=== PATIENT | male | born 1965 | race Caucasian/White ===

== ENCOUNTER 2020-09-05 18:28 | Emergency (ER) | payer MEDICARE, OTHER ==
[~2020-09-05 18:28] MED LIST: BACLOFEN10 MG PO; BENTYL10 MG PO; CATAPRES0.1 MG PO; CYCLOBENZAPRINE10 MG PO; HYDROCODON-ACE1 EAC2 PO; KLOR-CON M 1010 MEQ PO; LEVOTHYROXINE25 MCG PO; MEDROL 4MG DOSEP4 MG PO; METHYLPREDNISOLO4 M1 PO; MOTRIN600 MG PO; NORCO 5-325 TA1 EACH PO; OMEPRAZOLE40 MG PO; PREDNISONE 20MG20 MG PO; PROPRANOLOL HCL10 MG PO; QUETIAPINE FUM100 MG PO; TAMSULOSIN HCL0.4 MG PO; TIZANIDINE HCL4 M1 PO; WAL-FEX ALLERG180 MG PO; ZANAFLEX4 MG PO; ZOFRAN4 MG PO
== END 2020-09-05 22:22 | disposition home or self-care (01) ==
LOC: FER 18:28
DX: G89.29 Other chronic pain (principal); M54.5 Low back pain; Z88.2 Allergy status to sulfonamides; Z88.6 Allergy status to analgesic agent
CPT/HCPCS: 96372; J1100; J1170; J2550

== ENCOUNTER 2020-10-03 12:02 | Emergency (ER) | payer MEDICARE, OTHER | END 2020-10-03 14:20 | disposition home or self-care (01) | LOC: FER 12:02 | DX: G89.29 Other chronic pain (principal); M25.552 Pain in left hip; J44.9 Chronic obstructive pulmonary disease, unspecified; Z87.39 Personal history of other diseases of the musculoskeletal system and connective tissue; Z98.890 Other specified postprocedural states; Z88.2 Allergy status to sulfonamides | CPT/HCPCS: 96372; 99283; J1100; J1170 ==

== ENCOUNTER 2020-11-27 20:45 | Emergency (ER) | payer MEDICARE, OTHER | END 2020-11-27 23:26 | disposition home or self-care (01) | LOC: FER 20:45 | DX: M54.5 Low back pain (principal); G89.29 Other chronic pain; M25.552 Pain in left hip; F17.210 Nicotine dependence, cigarettes, uncomplicated; Z98.890 Other specified postprocedural states; Z88.2 Allergy status to sulfonamides; Z87.81 Personal history of (healed) traumatic fracture | CPT/HCPCS: 72100; 73502; 96372; J1170; J1885; J2930 ==

== ENCOUNTER 2020-11-30 20:13 | Emergency (ER) | payer MEDICARE, OTHER ==
[2020-11-30] MEDS ORDERED: MEDROL 4MG DOSEP4 MG PO (21:18)
== END 2020-11-30 21:25 | disposition home or self-care (01) ==
LOC: FER 20:13
DX: M54.9 Dorsalgia, unspecified (principal); G89.29 Other chronic pain; F17.200 Nicotine dependence, unspecified, uncomplicated; Z79.891 Long term (current) use of opiate analgesic
CPT/HCPCS: 99283; J1885

== ENCOUNTER 2021-02-13 00:51 | Emergency (ER) | payer MEDICARE, OTHER ==
[2021-02-13] MEDS ORDERED: ZANAFLEX2 MG PO (03:44)
== END 2021-02-13 03:54 | disposition home or self-care (01) ==
LOC: FER 00:51
DX: S44.92XA Injury of unspecified nerve at shoulder and upper arm level, left arm, initial encounter (principal); S40.022A Contusion of left upper arm, initial encounter; F17.210 Nicotine dependence, cigarettes, uncomplicated; Z88.2 Allergy status to sulfonamides; W18.2XXA Fall in (into) shower or empty bathtub, initial encounter; Y92.009 Unspecified place in unspecified non-institutional (private) residence as the place of occurrence of the external cause
CPT/HCPCS: 72050; 73030; 73060; 73090; 96372; J1040; J1170; J1885

== ENCOUNTER 2021-03-11 03:23 | Emergency (ER) | payer MEDICARE, OTHER ==
[~2021-03-11 03:23] MED LIST changes: +ZANAFLEX2 MG PO
[2021-03-11] MEDS ORDERED: MEDROL 4MG DOSEP4 MG PO (06:16)
== END 2021-03-11 06:27 | disposition home or self-care (01) ==
LOC: FER 03:23
DX: M54.40 Lumbago with sciatica, unspecified side (principal); M25.532 Pain in left wrist; M79.642 Pain in left hand; F17.210 Nicotine dependence, cigarettes, uncomplicated
CPT/HCPCS: 96372; J1100; J1170

== ENCOUNTER 2021-04-06 05:12 | Emergency (ER) | payer MEDICARE, OTHER ==
[2021-04-06 06:11] LABS: BASOPHIL 0.5 % (0-2); EOSINOPHIL 0.4 % (0-5); HCT 40.4 % (42.0-52.0); LYMPHOCYTE 22.8 % (15-48); MCH 32.1 pg (25.0-31.0); MCHC 32.2 g/dL (32.0-36.0); MCV 99.8 fL (78.0-100.0); MONOCYTE 10.2 % (0-12); MPV 8.8 fL (6.0-9.5); NEUTROPHIL 65.2 % (41-80); NRBC 0; PLT 250 K/uL (150-400); RBC 4.05 M/uL (4.70-6.00); RDW 18.1 % (11.5-14.0)
[2021-04-06 06:52] LABS: ALBUMIN 2.9 g/dL (3.4-5.0); BILIRUBIN - TOTAL 0.2 mg/dL (0.2-1.0); BUN/CREAT RATIO (CALC) 23.7 RATIO; CREATININE 0.76 mg/dL (0.67-1.17); GLOBULIN (CALCULATION) 3.4 g/dL; TOTAL PROTEIN 6.3 g/dL (6.4-8.2)
== END 2021-04-06 06:26 | disposition left against medical advice (07) ==
LOC: FER 05:12
PROVIDERS: Emergency Medicine
DX: T24.032A Burn of unspecified degree of left lower leg, initial encounter (principal); Z53.29 Procedure and treatment not carried out because of patient's decision for other reasons
CPT/HCPCS: 36415; 80053; 83880; 85025; 99283

== ENCOUNTER 2021-05-22 22:30 | Emergency (ER) | payer MEDICARE, OTHER ==
[2021-05-23] MEDS ORDERED: MOBIC7.5 MG PO (00:14)
[2021-05-23] MEDS ORDERED: CYCLOBENZAPRINE10 MG PO (00:14)
== END 2021-05-23 00:40 | disposition home or self-care (01) ==
LOC: FER 22:30
DX: M54.32 Sciatica, left side (principal); G89.29 Other chronic pain; F17.210 Nicotine dependence, cigarettes, uncomplicated; Z98.890 Other specified postprocedural states; Z88.2 Allergy status to sulfonamides
CPT/HCPCS: 96372; J1040; J1170; J1885

== ENCOUNTER 2021-07-02 06:06 | Emergency (ER) | payer MEDICARE, OTHER ==
[~2021-07-02 06:06] MED LIST changes: +MOBIC7.5 MG PO
[2021-07-02 08:02] LABS: BASOPHIL 0.6 % (0-2); EOSINOPHIL 0.9 % (0-5); HCT 40.1 % (42.0-52.0); LYMPHOCYTE 26.8 % (15-48); MCH 32.4 pg (25.0-31.0); MCHC 32.4 g/dL (32.0-36.0); MONOCYTE 7.4 % (0-12); MPV 8.4 fL (6.0-9.5); NEUTROPHIL 63.7 % (41-80); NRBC 0; PLT 207 K/uL (150-400); RBC 4.01 M/uL (4.70-6.00); RDW 13.4 % (11.5-14.0); WBC 9.5 K/uL (4.0-10.5)
[2021-07-02 08:14] LABS: INR 0.88 (0.9-1.2); PROTHROMBIN TIME 11.4 SECONDS (11.8-13.4); PTT 29.6 SECONDS (24.4-34.7)
[2021-07-02 08:19] LABS: ALBUMIN 2.7 g/dL (3.4-5.0); BILIRUBIN - TOTAL 0.2 mg/dL (0.2-1.0); BUN/CREAT RATIO (CALC) 23.4 RATIO; CREATININE 0.64 mg/dL (0.67-1.17); GLOBULIN (CALCULATION) 3.1 g/dL; POTASSIUM 4.5 mmol/L (3.5-5.1); TOTAL PROTEIN 5.8 g/dL (6.4-8.2)
[2021-07-02] MEDS ORDERED: LASIX20 MG PO (08:31)
== END 2021-07-02 08:49 | disposition home or self-care (01) ==
LOC: FER 06:06
PROVIDERS: Internal Medicine
DX: M25.552 Pain in left hip (principal); R60.0 Localized edema; I10 Essential (primary) hypertension; F17.210 Nicotine dependence, cigarettes, uncomplicated
CPT/HCPCS: 36415; 73502; 80053; 83880; 85025; 85610; 85730; J1885

== ENCOUNTER 2021-07-28 20:26 | Emergency (ER) | payer MEDICARE, OTHER ==
[~2021-07-28 20:26] MED LIST changes: +LASIX20 MG PO
== END 2021-07-28 21:58 | disposition home or self-care (01) ==
LOC: FER 20:26
DX: G89.29 Other chronic pain (principal); M25.552 Pain in left hip
CPT/HCPCS: 96372; J1100; J1885

== ENCOUNTER 2021-08-21 23:29 | Emergency (ER) | payer MEDICARE, OTHER | END 2021-08-22 00:30 | disposition home or self-care (01) | LOC: FER 23:29 | DX: M54.50 Low back pain, unspecified (principal); I10 Essential (primary) hypertension; F17.200 Nicotine dependence, unspecified, uncomplicated; Z88.2 Allergy status to sulfonamides; Z79.899 Other long term (current) drug therapy | CPT/HCPCS: 96372; 99283; J1170; J2930 ==